=== PATIENT | male | born 1950 | race Two or more races ===

== ENCOUNTER 2025-02-21 10:32 | Inpatient (IN) | payer MEDICAID ==
[~2025-02-21] VITALS: Ht 177.8 cm; Wt 73.5 kg
--- NOTE | 2025-02-21 12:40 | NUR ---
RN NOTE - OPENING NOTE RECEIVED PATIENT VIA GURNEY, PATIENT IS A DIRECT ADMIT FROM [facility]. RECEIVED REPORT FROM TEJAS DURBIN. PATIENT SAFELY TRANSFERRED TO BED WITH 2 EMT'S. GRAND DAUGHTER AT BEDSIDE. PATIENT IS ALERT AND ORIENTED X3, CREOLE SPEAKING ONLY, ABLE TO MAKE NEEDS KNOWN. PATIENT IS ON ROOM AIR, NO SHORTNESS OF BREATH, NO RESPIRATORY DISTRESS, BREATHING IS EVEN AND UNLABORED. PATIENT HAS IV ACCESS TO RIGHT ANTECUBITAL GAUGE #20, SALINE LOCK, INTACT, PATENT AND FLUSHING WELL. SAFETY PRECAUTIONS IN PLACE, BED IN LOWEST POSITION AND LOCKED, SIDE RAILS UP X2, HEAD OF BED ELEVATED TO SEMI-FOWLERS POSITION, BED ALARM ON, CALL LIGHT WITHIN REACH. WILL CONTINUE ONGOING PLAN OF CARE.
[2025-02-21] MEDS ORDERED: MAG HYDROX/AL HYDROX/SIMETH 30 ML UDC PO PRN (13:30)
[2025-02-21] MEDS ORDERED: ONDANSETRON HCL/PF 4 MG/2 ML VIAL IVP PRN (13:30)
[2025-02-21] MEDS ORDERED: Z GUARD REMEDY 4 OZ OINT TP PRN (13:30)
[2025-02-21] MEDS ORDERED: MAGNESIUM HYDROXIDE 30 ML UDC PO PRN (13:30)
[2025-02-21] MEDS: IV D5/0.45 NACL 1,000 ML IV PRN (14:08)
[2025-02-21] MEDS ORDERED: CLONIDINE HCL 0.1 MG TABLET PO PRN (16:00)
[2025-02-21] MEDS ORDERED: APIXABAN 5 MG TABLET PO SCH (17:00)
[2025-02-21] MEDS: FERROUS SULFATE (325 MG) 325 MG/TAB TABLET PO SCH (17:00)
[2025-02-21] MEDS: METRONIDAZOLE 500MG/ NS 100ML 500 MG in PREMIX 1 EA IV SCH (18:30)
--- NOTE | 2025-02-21 19:00 | NUR ---
RN NOTE - CLOSING NOTE TELE PATIENT IS IN BED, AWAKE, ALERT AND ORIENTED X3, CREOLE SPEAKING ONLY WITH GRAND SON, SON AND DAUGHTER IN LAW AT BEDSIDE. PATIENT IS ON ROOM AIR, NO SHORTNESS OF BREATH, NO RESPIRATORY DISTRESS, BREATHING IS EVEN AND UNLABORED. PATIENT HAS IV ACCESS TO RIGHT ANTECUBITAL GAUGE #20 CURRENTLY RUNNING METRONIDAZOLE 100ML/HR SECONDARY WITH D5 1/2 NS @ 125ML/HR PRIMARY. PATIENT IS ON TELE MONITORING, VPACING WITH BUNDLE BRANCH BLOCK, HEART RATE AT 71 CURRENTLY. PATIENT IS CURRENTLY ON NPO. SAFETY PRECAUTIONS IN PLACE, BED IN LOWEST POSITION AND LOCKED, SIDE RAILS UP X2, HEAD OF BED ELEVATED TO SEMI-FOWLERS POSITION, BED ALARM ON, CALL LIGHT WITHIN REACH. ENDORSED TO NEXT SHIFT RN REGARDING ONGOING PLAN O CARE.
--- NOTE | 2025-02-21 19:30 | NUR ---
COLLECTIONS OFFICER OPENING NOTE RECEIVED PATIENT AWAKE IN BED, A/OX2. ON ROOM AIR, BREATHING EVENLY AND UNLABORED. NO S/SX OF DISTRESS NOTED. IV ACCESS TO RAC G#20 WITH RUNNING D5 1/2 NS @ 125 ML/HR. ON TELE MONITORING CURRENTLY V PACING WITH BBB HR 72 BPM. PLACED ON PUREWICK ATTACHED TO CONTINUOUS SUCTION. SAFETY PRECAUTIONS IMPLEMENTED: BED IN LOW AND LOCKED POSITION, SIDE RAILS UP X 3, BED ALARM ON, CALL LIGHT WITHIN REACH. WILL CONTINUE PLAN OF CARE.
[2025-02-21 20:00] VITALS: BP 139/59; TEMP 97.9; O2SAT 93
[2025-02-21] MEDS: CIPROFLOXACIN IV RTU 400 MG in PREMIX 1 EA IV SCH (20:45)
[2025-02-21] MEDS: MAGNESIUM OXIDE 400 MG TABLET PO SCH (22:00)
[2025-02-21] MEDS: ATORVASTATIN 40 MG TABLET PO SCH (22:00)
[2025-02-21] MEDS: TAMSULOSIN 0.4 MG CAP.SR.24H PO SCH (22:00)
[2025-02-22] VITALS: BP 160/56; TEMP 99.1; O2SAT 97
[2025-02-22 04:00] VITALS: BP 160/86; TEMP 98.4; O2SAT 99
--- NOTE | 2025-02-22 06:51 | NUR ---
CHIP LOFT WORKER CLOSING NOTE PATIENT IN BED, STABLE ON ROOM AIR, BREATHING EVENLY AND UNLABORED. NO S/SX OF DISTRESS NOTED. IV ACCESS TO RAC G#20 WITH RUNNING D5 1/2 NS @ 125 ML/HR. ON TELE MONITORING CURRENTLY V PACING WITH BBB HR 68 BPM. WITH PUREWICK ATTACHED TO CONTINUOUS SUCTION. ALL NEEDS ATTENDED. SAFETY PRECAUTIONS MAINTAINED. WILL ENDORSE TO AM SHIFT NURSE FOR DIDIER.
[2025-02-22 07:02] LABS: PLATELET COUNT (AUTO) 214 K/uL (150-450); RED BLOOD CELL COUNT(AUTO) 2.56 MIL/uL (4.5-6.0); RED CELL DISTRIBUTION WIDTH 12.4 % (11.5-15.0); WHITE BLOOD COUNT (AUTO) 5.8 K/uL (4.3-11.0)
[2025-02-22 07:04] LABS: CALCIUM, SERUM 7.9 mg/dL (8.5-10.1); CREATININE 2.0 mg/dL (0.6-1.3); PHOSPHORUS 3.5 mg/dL (2.5-4.9); SODIUM SERUM 137.0 mmol/L (136-145); UREA NITROGEN, BLOOD 17.0 mg/dL (7-18)
--- NOTE | 2025-02-22 07:25 | NUR ---
PAROLE AGENT OPENING NOTE PATIENT RECEIVED AWAKE, RESTING IN BED, A/OX2. BREATHING EVEN AND UNLABORED ON ROOM AIR. NO S/SX OF SOB OR DISTRESS NOTED. IV ACCESS TO RIGHT AC G#20 WITH RUNNING D5 1/2NS @ 125 ML/HR. ON TELE MONITORING CURRENTLY V PACING WITH BBB HR 69 BPM. NO COMPLAINTS OF PAIN OR DISCOMFORT AT THIS TIME. PLACED ON PUREWICK ATTACHED TO WALL SUCTION, DRAINING YELLOW URINE. SAFETY PRECAUTIONS IMPLEMENTED: BED IN LOW AND LOCKED POSITION, SIDE RAILS UP X 3, BED ALARM ON, CALL LIGHT WITHIN REACH. WILL CONTINUE PLAN OF CARE.
[2025-02-22 08:00] VITALS: BP 186/91; TEMP 98.1; O2SAT 100
[2025-02-22] MEDS: FAMOTIDINE (20 MG) 20 MG TABLET PO SCH (08:21)
[2025-02-22] MEDS: ASCORBIC ACID 500 MG TABLET PO SCH (08:21)
[2025-02-22] MEDS: LOSARTAN POTASSIUM 50 MG TABLET PO SCH (08:22)
[2025-02-22] MEDS: HYDROCHLOROTHIAZIDE 25 MG TABLET PO SCH (08:22)
[2025-02-22] MEDS: NIFEdipine XL (30MG) 30 MG TAB PO SCH (08:23)
[2025-02-22] MEDS: PANTOPRAZOLE 40 MG VIAL IV SCH ×2 (08:23→17:07)
[2025-02-22] MEDS ORDERED: CLOPIDOGREL BISULFATE 75 MG TABLET PO SCH (09:00)
[2025-02-22 11:16] LABS: EOSINOPHILS % (MANUAL) 5 % (0-4); LYMPHOCYTES % (MANUAL) 8 % (16-48); MONOCYTES % (MANUAL) 16 % (0-11.0); NEUTROPHILS % (MANUAL) 71 (42-76); PLATELET ESTIMATE ADEQUATE
--- NOTE | 2025-02-22 11:30 | NUR ---
RN NOTE PATIENT D/C FROM TELEMETRY AND ADMITTED TO MED SURG. DIET UPGRADED FROM NPO TO CLEAR LIQUIDS, WILL MONITOR TO SEE IF PATIENT TOLERATES WITHOUT N/V OR ABDOMINAL PAIN. PLAN OF CARE ONGOING.
[2025-02-22] MEDS: ACETAMINOPHEN 325 MG TABLET PO PRN (12:01)
[2025-02-22] MEDS: AMIODARONE HCL 200 MG TABLET PO SCH (12:02)
--- NOTE | 2025-02-22 12:47 | NUR ---
RN NOTE PATIENT DID NOT TOLERATE UPGRADED DIET OF CLEAR LIQUIDS. PATIENT VOMITED AND HAD BLOODY BOWEL MOVEMENT AFTER EATING. HAS HAD BLOODY STOOL X2 AT THIS TIME. REPORTED TO MD THAT PATIENT DID NOT TOLERATE CLEAR LIQUIDS. MD ORDERED IV PROTONIX Q12H. ORDER RECEIVED. PLAN OF CARE ONGOING.
--- NOTE | 2025-02-22 14:30 | NUR ---
RN NOTE PATIENT HAD ANOTHER BOWEL MOVEMENT IN BEDSIDE COMMODE. STOOL DARK COLORED, SOFT, FORMED BUT NO BLOOD NOTED LIKE IN PREVIOUS BOWEL MOVEMENTS. PLAN OF CARE ONGOING.
[2025-02-22 16:00] VITALS: BP 165/56; TEMP 99.1; O2SAT 98
--- NOTE | 2025-02-22 18:55 | NUR ---
EMERGENCY DETAIL DRIVER CLOSING NOTE PATIENT AWAKE, RESTING IN BED, A/OX3-4, K[place]/CREOLE SPEAKING, UNDERSTANDS LITTLE RWANDAN, FAMILY AT BEDSIDE TO TRANSLATE. BREATHING EVEN AND UNLABORED ON ROOM AIR. NO S/SX OF SOB OR DISTRESS NOTED. IV ACCESS TO RIGHT AC G#20 WITH RUNNING D5 1/2NS @ 125 ML/HR. DISCHARGED FROM TELEMETRY AND TRANSFERRED TO [facility]. NO COMPLAINTS OF PAIN OR DISCOMFORT AT THIS TIME. PLACED ON PUREWICK ATTACHED TO WALL SUCTION, DRAINING CLEAR, YELLOW URINE, COMMODE AT BEDSIDE FOR BM, REQUIRES ASSISTANCE TO TRANSFER TO COMMODE. BLOODY BM X2, THEN TWO SOFT, FORMED, BLACK STOOL BOWEL MOVEMENTS ON THIS SHIFT. ALL NEEDS ATTENDED TO AND ALL MEDICATIONS ADMINISTERED ORDERED. SAFETY PRECAUTIONS IMPLEMENTED: BED IN LOW AND LOCKED POSITION, SIDE RAILS UP X2, BED ALARM ON, CALL LIGHT WITHIN REACH. WILL ENDORSE TO MINE EXPLORATION ENGINEER NURSE FOR CONTINUITY OF CARE.
[2025-02-22 20:00] VITALS: BP 155/54; TEMP 99.1; O2SAT 100
--- NOTE | 2025-02-22 20:00 | NUR ---
CLERICAL PRODUCTION WORKER OPENING NOTE PATIENT AWAKE, RESTING IN BED, A/O X3-4, BERMUDIAN/CREOLE SPEAKING, FAMILY AT BEDSIDE TO TRANSLATE. NO S/S OF PAIN NOTED AT THIS TIME. PATIENT IS ON ROOM AIR, BREATHING EVEN AND UNLABORED, NO DISTRESS OR SHORTNESS OF BREATH NOTED. IV ACCESS TO RIGHT AC 20 G WITH RUNNING D5 1/2NS @ 125 ML/HR. PATIENT IS ON PUREWICK ATTACHED TO WALL SUCTION, COMMODE AT BEDSIDE FOR BM, REQUIRES ASSISTANCE TO TRANSFER TO COMMODE. FALL AND SAFETY MEASURES IN PLACE: BED IN LOW AND LOCKED POSITION, SIDE RAILS UP X2, BED ALARM ON, CALL LIGHT WITHIN REACH. WILL CONTINUE TO MONITOR.
[2025-02-22 20:46] LABS: PLATELET COUNT (AUTO) 234 K/uL (150-450); RED BLOOD CELL COUNT(AUTO) 2.65 MIL/uL (4.5-6.0); RED CELL DISTRIBUTION WIDTH 13.0 % (11.5-15.0); WHITE BLOOD COUNT (AUTO) 7.0 K/uL (4.3-11.0)
[2025-02-22 21:16] LABS: EOSINOPHILS % (MANUAL) 1 % (0-4); LYMPHOCYTES % (MANUAL) 11 % (16-48); MONOCYTES % (MANUAL) 13 % (0-11.0); NEUTROPHILS % (MANUAL) 75 (42-76)
[2025-02-22 21:17] LABS: PLATELET ESTIMATE ADEQUATE
[2025-02-23 01:45] LABS: APPEARANCE,URINE CLEAR (CLEAR); BLOOD, URINE NEGATIVE Ery/uL (NEGATIVE); LEUKOCYTE ESTERASE ,URINE NEGATIVE (NEGATIVE); NITRITE, URINE NEGATIVE (NEGATIVE); UGLUCOSE NEGATIVE (NEGATIVE)
[2025-02-23 01:49] LABS: CREATININE, URINE 80.3 MG/DL (30.0-125.0); URINE SODIUM, RANDOM 136.0 mmol/l (40-220); URINE TOTAL PROTEIN 57.1 mg/dL (0-11.9)
[2025-02-23 01:50] LABS: ADD URINE CULTURE NO; SQUAMOUS EPITHELIAL CELL,UR Few /HPF (None Seen)
[2025-02-23 04:08] LABS: EOSINOPHIL,URINE None Seen
--- NOTE | 2025-02-23 06:53 | NUR ---
SANITATION MANAGER CLOSING NOTE PATIENT AWAKE, RESTING IN BED, A/O X3-4, TURKMEN/CREOLE SPEAKING, FAMILY AT BEDSIDE TO TRANSLATE. NO S/S OF PAIN NOTED AT THIS TIME. PATIENT IS ON ROOM AIR, BREATHING EVEN AND UNLABORED, NO DISTRESS OR SHORTNESS OF BREATH NOTED. IV ACCESS TO RIGHT AC 20 G WITH RUNNING D5 1/2NS @ 125 ML/HR. PATIENT IS ON PUREWICK ATTACHED TO WALL SUCTION, OUTPUT 1000ML, DARK YELLOW COLOR. COMMODE AT BEDSIDE FOR BM, REQUIRES ASSISTANCE TO TRANSFER TO COMMODE. NO BM DURING LAMPS TESTER AND INSPECTOR. FALL AND SAFETY MEASURES IN PLACE: BED IN LOW AND LOCKED POSITION, SIDE RAILS UP X2, BED ALARM ON, CALL LIGHT WITHIN REACH. WILL ENDORSE TO MORNING NURSE.
--- NOTE | 2025-02-23 07:01 | NUR ---
RN NOTE - OPENING NOTE RECEIVED PATIENT IN BED, ASLEEP, ABLE TO AROUSE EASILY TO VERBAL STIMULI AND LIGHT TOUCH. PATIENT IS ALERT AND ORIENTED X3, CREOLI - [place] CITIZ[place] SPEAKING ONLY, ABLE TO MAKE NEEDS KNOWN. PATIENT IS ON ROOM AIR, NO SHORTNESS OF BREATH, NO RESPIRATORY DISTRESS, BREATHING IS EVEN AND UNLABORED. PATIENT HAS IV ACCESS TO RIGHT ANTECUBITAL, GAUGE #20 RUNNING D5 1/2 NS @ 125ML/HR. SAFETY PRECAUTIONS IN PLACE, BED IN LOWEST POSITION AND LOCKED, SIDE RAILS UP X2, BED ALARM ON, CALL LIGHT WITHIN REACH. WILL CONTINUE ONGOING PLAN OF CARE.
[2025-02-23 08:00] VITALS: BP 131/57; TEMP 98.4; O2SAT 98
[2025-02-23 17:00] VITALS: BP 131/43; TEMP 98.6; O2SAT 98
[2025-02-23 18:05] LABS: PLATELET COUNT (AUTO) 266 K/uL (150-450); RED BLOOD CELL COUNT(AUTO) 2.58 MIL/uL (4.5-6.0); RED CELL DISTRIBUTION WIDTH 12.9 % (11.5-15.0); WHITE BLOOD COUNT (AUTO) 7.4 K/uL (4.3-11.0)
[2025-02-23 18:18] LABS: ASPARTATE AMINOTRANSFERASE 54.0 U/L (15-37); CALCIUM, SERUM 8.1 mg/dL (8.5-10.1); CREATININE 2.2 mg/dL (0.6-1.3); PHOSPHORUS 3.0 mg/dL (2.5-4.9); SODIUM SERUM 138.0 mmol/L (136-145); TOTAL PROTEIN, SERUM 7.0 g/dL (6.4-8.2); UREA NITROGEN, BLOOD 12.0 mg/dL (7-18)
[2025-02-23 18:20] LABS: CREATINE KINASE, TOTAL 189.0 U/L (39-308)
[2025-02-23 18:26] LABS: BASOPHILS % (MANUAL) 0 % (0.0-2.0); EOSINOPHILS % (MANUAL) 3 % (0-4); LYMPHOCYTES % (MANUAL) 16 % (16-48); MONOCYTES % (MANUAL) 21 % (0-11.0); NEUTROPHILS % (MANUAL) 60 (42-76); PLATELET ESTIMATE ADEQUATE
--- NOTE | 2025-02-23 18:58 | NUR ---
RN NOTE - CLOSING NOTE PATIENT IN BED, AWAKE, ALERT AND ORIENTED X3, CREOLI - [place] SPEAKING ONLY, ABLE TO MAKE NEEDS KNOWN. PATIENT IS ON ROOM AIR, NO SHORTNESS OF BREATH, NO RESPIRATORY DISTRESS, BREATHING IS EVEN AND UNLABORED. PATIENT HAS IV ACCESS TO RIGHT ANTECUBITAL, GAUGE #20 RUNNING D5 1/2 NS @ 125ML/HR. SAFETY PRECAUTIONS IN PLACE, BED IN LOWEST POSITION AND LOCKED, SIDE RAILS UP X2, BED ALARM ON, CALL LIGHT WITHIN REACH. WILL CONTINUE ONGOING PLAN OF CARE. Addendum: 02/23/25 at 1903 by ANYI MATTSON RN ALL DUE MEDICATIONS ADMINISTERED, PATIENT TOLERATED WELL. NO ADVERSE REACTIONS NOTED. NO ACTIVE BLEEDING NOTED. ENDORSED TO NEXT SHIFT NURSE REGARDING ONGOING PLAN OF CARE.
--- NOTE | 2025-02-23 19:30 | NUR ---
RN OPENING NOTES RECEIVED PT IN BED, AWAKE, DAUGHTER AT BEDSIDE. PT IS [place] CITIZ[place] SPEAKING ONLY, DAUGHTER HELPS IN TRANSLATION. PT IS A/O X3. ON ROOM AIR WITH RESPIRATIONS EVEN AND UNLABORED. IV ACCESS AT RAC 20 G INFUSING WELL WITH D5 1/2 NS AT 125ML/HR. PUREWICK TO WALL SUCTION. PT REFUSED TO BE ON DVT PUMPS, ABLE TO BE ASSISTED IN COMMODE AND MOBILE TO BED. DENIES PAIN OR ANY DISTRESS AT THIS TIME. REQUESTING AMBIEN FOR SLEEP WITH PM MEDS. SAFETY PRECAUTIONS IN PLACE: BED AT LOWEST AND LOCKED POSITION, SIDE RAILS UPX 3, BED ALARM ON,C ALL LIGHT BUTTON AND TABLE WITHIN EASY REACH PLAN OF CARE ONGOING
[2025-02-23 20:00] VITALS: BP 142/51; TEMP 100.9; O2SAT 98
[2025-02-23] MEDS: ZOLPIDEM TARTRATE 5 MG TABLET PO PRN (21:03)
--- NOTE | 2025-02-23 22:53 | NUR ---
RN NOTE PT KEEP BENDING ARM WHERE IV ACCESS IS, CAUSING THE IV PUMP TO GO OFF AND BEEP. THIS HAPPENED SEVERAL TIMES ALREADY THAT PT IS BOTHERED AND UNABLE TO SLEEP. OFFERED PT AND DAUGHTER AT BEDSIDE TO INSERT A NEW IV ACCESS TO WHERE THERE'S LESS MOVEMENT TO PT'S ARM, HOWEVER PT REFUSED FOR ANOTHER NEEDLE POKE. PT THEN REQUESTED TO "HAVE A BREAK ON IV FLUIDS" , THIS IS DESPITE THE EDUCATION PROVIDED TO PT AND FAMILY AT BEDSIDE.
--- NOTE | 2025-02-23 22:57 | NUR ---
RN NOTE IV FLUIDS HELD AT THIS TIME PER PT REQUEST DESPITE EDUCATION
[2025-02-24 03:13] VITALS: TEMP 98.2
--- NOTE | 2025-02-24 03:14 | NUR ---
RN NOTE PT NOW AFEBRILE WITH TEMPERATURE OF 98.5
--- NOTE | 2025-02-24 07:30 | NUR ---
RN OPENING NOTES RECEIVED PT IN BED RESTING COMFORTABLY, AWAKE A/OX3-4 GRAND DAUGHTER AT BEDSIDE. ABLE TO RESPOND TO ALL STIMULI IN [place] LANGUAGE ONLY, GRAND DAUGHTER HELPS IN TRANSLATION. BREATHING EVEN AND UNLABORED WITH NO SOB NOTED. ON ROOM AIR AND TOLERATED WELL. IV ACCESS AT LEFT HAND 20G INFUSING WELL. ON PUREWICK CONNECTED TO WALL SUCTION. ABLE TO USE BEDSIDE COMMODE WITH ASSISTANCE. NO C/O PAIN OR ANY DISCOMFORT AT THIS TIME. IV ATBS GIVEN ORDERED AND TOLERATED WELL. SAFETY PRECAUTIONS MAINTAINED ALL LIGHT BUTTON AND TABLE WITHIN EASY REACH WILL CONT TO MONITOR
[2025-02-24 08:00] VITALS: BP 131/58; TEMP 97.7; O2SAT 96
[2025-02-24] MEDS: PANTOPRAZOLE 40 MG VIAL IV SCH (08:43)
[2025-02-24] MEDS: METRONIDAZOLE 500 MG TABLET PO SCH (12:33)
[2025-02-24 13:10] LABS: ASPARTATE AMINOTRANSFERASE 47.0 U/L (15-37); CALCIUM, SERUM 7.9 mg/dL (8.5-10.1); CREATININE 2.3 mg/dL (0.6-1.3); PHOSPHORUS 2.4 mg/dL (2.5-4.9); SODIUM SERUM 139.0 mmol/L (136-145); TOTAL PROTEIN, SERUM 6.6 g/dL (6.4-8.2); UREA NITROGEN, BLOOD 15.0 mg/dL (7-18)
[2025-02-24 13:37] LABS: PLATELET COUNT (AUTO) 283 K/uL (150-450); RED BLOOD CELL COUNT(AUTO) 2.36 MIL/uL (4.5-6.0); RED CELL DISTRIBUTION WIDTH 13.1 % (11.5-15.0); WHITE BLOOD COUNT (AUTO) 6.9 K/uL (4.3-11.0)
[2025-02-24 16:00] VITALS: BP 145/61; TEMP 98.8; O2SAT 100
[2025-02-24] MEDS: K PHOS NEUTRAL 250 MG TABLET PO ONE (16:20)
--- NOTE | 2025-02-24 19:07 | NUR ---
RN CLOSING NOTES LEFT PATIENT IN BED ON STABLE CONDITION ON BED RESTING COMFORTABLY, AWAKE A/OX3-4 GRAND DAUGHTER (ZARINA) AT BEDSIDE. ABLE TO RESPOND TO ALL STIMULI IN [place] LANGUAGE ONLY, GRAND DAUGHTER HELPING IN TRANSLATION. BREATHING EVEN AND UNLABORED, NO SOB OR ANY ACUTE RESPIRATORY DISTRESS NOTED. ON ROOM AIR AND TOLERATED WELL. IV ACCESS AT LEFT HAND 20G INFUSING WELL. ON IV HYDRATION D5 HALF NS AT 125ML/HR TOLERATING WELL. ON PURE WICK CONNECTED TO WALL SUCTION NOTED WITH 550ML OUTPUT URINE CLEAR YELLOW DURING THIS SHIFT. ABLE TO USE BEDSIDE COMMODE WITH ASSISTANCE. NO C/O PAIN OR ANY DISCOMFORT AT THIS TIME. ALL DUE MEDS GIVEN ORDERED AND TOLERATED WELL. IV ATBS GIVEN ORDERED AND TOLERATED WELL. FOR DISCHARGE LATER ON TONIGHT STILL WAITING FOR DOCTOR TO FINALIZED THE MEDS TO BE CONTINUED POST DISCHARGED. SAFETY PRECAUTIONS MAINTAINED ALL LIGHT BUTTON AND TABLE WITHIN EASY REACH ENDORSED TO ONCOMING SHIFT
--- NOTE | 2025-02-24 19:08 | NUR ---
MS RN OPENING NOTES RECEIVED AWAKE ON BED. WITH DAUGHTER AT BEDSIDE. A/O X3. HATIAN SPEAKER, DAUGHTER TRANSLATES FOR THE PATIENT. ON ROOM AIR TOLERATING WELL WITHOUT ANY RESPIRATORY DISTRESS NOTED. WITH IV ACCESS AT LEFT HAND G#20 D5 1/2 NS @ 125CC/HR INFUSING WELL. ON PUREWICK WITH YELLOWISH URINE OUTPUT NOTED. FOR DISCHARGE, WAITING FOR HOME MEDICATIONS. SAFETY MEASURES MAINTAINED. BED LOCKED AND IN LOWEST POSITION. SIDE RAILS X3. CALL LIGHT AND BEDSIDE TABLE WITHIN EASY REACH. WILL CONTINUE PLAN OF CARE.
[2025-02-24] MEDS ORDERED: LOSA50TA39 PO (19:40)
[2025-02-24] MEDS ORDERED: NIFE-35 PO (19:40)
[2025-02-24] MEDS ORDERED: CIPR-262 PO (19:40)
[2025-02-24] MEDS ORDERED: METR500T PO (19:40)
[2025-02-24] MEDS ORDERED: AMIO200T7 PO (19:40)
--- NOTE | 2025-02-24 20:31 | NUR ---
MS PRESCHOOL HEAD TEACHER NOTES PATIENT DISCHARGED ON STABLE CONDITION, CONTRAPTIONS REMOVED. BELONGINGS TAKEN BY DAUGHTER. TRANSFERRED TO WHEELCHAIR. ACCOMPANIED BY SON AND DAUGHTER. WHEELED TO CAR VIA WHEELCHAIR.
[2025-02-25 05:13] LABS: PTH, INTACT 75 pg/mL (15-65)
[2025-03-01 07:08] LABS: *SPE A/G RATIO 0.9 (0.7-1.7); *SPE ALBUMIN 3.0 g/dL (2.9-4.4); *SPE ALPHA-1-GLOBULIN 0.4 g/dL (0.0-0.4); *SPE ALPHA-2-GLOBULIN 1.0 g/dL (0.4-1.0); *SPE BETA GLOBULIN 0.8 g/dL (0.7-1.3); *SPE GLOBULIN, TOTAL 3.4 g/dL (2.2-3.9); *SPE M-SPIKE Not Observed g/dL (Not Observed); *SPE PROTEIN TOTAL 6.4 g/dL (6.0-8.5); *SPEGAMMA GLOBULIN 1.3 g/dL (0.4-1.8)
== END 2025-02-24 20:40 | disposition home or self-care (01) | DRG 248 ==
LOC: TELE 12:08 → MED 02-22 10:14
PROVIDERS: ADMIT Student in an Organized Health Care Education/Training Program; ATTEND Nurse Practitioner Acute Care
DX: A04.9 Bacterial intestinal infection, unspecified (principal); N17.0 Acute kidney failure with tubular necrosis; K92.2 Gastrointestinal hemorrhage, unspecified; D64.9 Anemia, unspecified; E11.22 Type 2 diabetes mellitus with diabetic chronic kidney disease; E78.5 Hyperlipidemia, unspecified; N39.0 Urinary tract infection, site not specified; I12.9 Hypertensive chronic kidney disease with stage 1 through stage 4 chronic kidney disease, or unspecified chronic kidney disease; N18.9 Chronic kidney disease, unspecified; Z95.0 Presence of cardiac pacemaker; N40.1 Benign prostatic hyperplasia with lower urinary tract symptoms; E83.89 Other disorders of mineral metabolism
CPT/HCPCS: 36415; 71046; 76770-TC; 80048-TC; 80053-TC; 81001; 82550-TC; 82570-TC; 83735-TC; 83970; 84100-TC; 84155; 84165; 84300-TC; 85025-TC; 85027-TC; 97110-TC; 97116-TC; 97530-TC; 97535-TC; A4216; A4223; G0378; J0744; J2470; J3490